=== PATIENT | male | born 1990 | race Caucasian/White ===

== ENCOUNTER 2019-01-05 11:35 | Emergency (ER) | payer SELFPAY ==
[~2019-01-05] VITALS: Ht 175.3 cm; Wt 95.5 kg
[2019-01-05 11:36] VITALS: BP 152/67
--- NOTE | 2019-01-05 11:44 | NUR ---
PT TO RME WITH GIRLFRIEND. PT ADMITS TO DRINKING TODAY. PT ADVISED TO STAY IN BED AND PT IS VISIBLE FROM NURSING STATION. PT REDIRECTED AND INSTRUCTED TO STAY ON GURNEY AND PROVIDER WILL BE IN ROOM.
[2019-01-05] MEDS ORDERED: LIDOCAINE-MPF 1%, 5ML ONE (11:48)
--- NOTE | 2019-01-05 13:10 | NUR ---
first contact with pt. Patient/Caregiver given discharge instructions and they have confirmed that they understand the instructions. Patient ambulatory with steady gait. pt left with all personal belongings
== END 2019-01-05 13:13 | disposition home or self-care (01) ==
LOC: ED 13:09
DX: S51.812A Laceration without foreign body of left forearm, initial encounter (principal); F17.200 Nicotine dependence, unspecified, uncomplicated; X58.XXXA Exposure to other specified factors, initial encounter; Y93.89 Activity, other specified; Y92.009 Unspecified place in unspecified non-institutional (private) residence as the place of occurrence of the external cause; Y99.8 Other external cause status
CPT/HCPCS: 12032; 99284